=== PATIENT | male | born 1990 | race African-American/Black ===

== ENCOUNTER 2023-01-22 18:28 | Emergency (ER) | payer OTHER ==
[~2023-01-22] VITALS: Ht 172.7 cm; Wt 88.4 kg
[2023-01-22] MEDS ORDERED: ADDERALL10 MG PO (18:56)
[2023-01-22 19:01] VITALS: BP 135/77
[2023-01-22 19:15] VITALS: BP 122/84
[2023-01-22 19:30] VITALS: BP 121/81
[2023-01-22 19:46] VITALS: BP 142/87
[2023-01-22] MEDS ORDERED: CORTISPORIN OTI10 M2 AS ×2 (19:55→20:30)
[2023-01-22 20:01] VITALS: BP 140/94
[2023-01-22 20:16] VITALS: BP 124/75
== END 2023-01-22 20:23 | disposition home or self-care (01) | DRG 156 ==
LOC: ED 18:28
DX: H60.92 Unspecified otitis externa, left ear (principal)